=== PATIENT | male | born 1955 ===

== ENCOUNTER 2020-07-08 08:23 | Outpatient (CLI) | payer OTHER ==
[2020-07-08 09:07] LABS: THYROID STIMULATING HORMONE 0.51 uIU/mL (0.34-5.60)
[2020-07-08 09:08] LABS: FREE T3 4.13 pg/mL (2.5-3.9)
[2020-07-08 09:09] LABS: FREE T4 (FREE THYROXINE) 1.09 ng/dL (0.58-1.64)
== END 2020-07-08 08:24 | disposition home or self-care (01) ==
LOC: LAB 08:23
PROVIDERS: ATTEND Internal Medicine Endocrinology, Diabetes & Metabolism
DX: E06.3 Autoimmune thyroiditis (principal)
CPT/HCPCS: 36415; 84439; 84443; 84481

== ENCOUNTER 2021-09-24 11:51 | Outpatient (CLI) | payer BC ==
[2021-09-24 13:14] LABS: THYROID STIMULATING HORMONE 1.56 uIU/mL (0.34-5.60)
[2021-09-24 13:15] LABS: FREE T3 3.63 pg/mL (2.5-3.9)
[2021-09-24 13:16] LABS: FREE T4 (FREE THYROXINE) 1.04 ng/dL (0.58-1.64)
== END 2021-09-24 11:52 | disposition home or self-care (01) ==
LOC: LAB 11:51
PROVIDERS: ATTEND Internal Medicine Endocrinology, Diabetes & Metabolism
DX: E06.3 Autoimmune thyroiditis (principal); E03.9 Hypothyroidism, unspecified
CPT/HCPCS: 36415; 84439; 84443; 84481